=== PATIENT | female | born 1980 ===

== ENCOUNTER 2018-06-07 21:22 | Inpatient (IN) ==
[2018-06-07] MEDS ORDERED: PIPERACILLIN/TAZOBACTAM 3,375 MG in SODIUM CHLORIDE 0.9% 100 ML IV STA (23:29)
[2018-06-07] MEDS ORDERED: SODIUM CHLORIDE 0.9% 1,000 ML IV SCH (23:30)
[2018-06-07 23:42] LABS: Basophils % 0.3 % (0.0-0.8); Eosinophils # 0.3 10*3/uL (0.0-0.87); Eosinophils % 2.2 % (0.00-10.9); Hematocrit 34.1 VOL% (35.7-47.0); Hemoglobin 10.6 GM/DL (12.0-16.0); Immature Granulocytes % 0.5 %; Immature Granulocytes Absolute 0.07 #; Lymphocytes # 4.6 10*3/uL (1.4-4.0); Lymphocytes % 35.7 % (21.3-54.2); Mean Corpuscular HGB Conc 31.1 GM/DL (32-36); Mean Corpuscular Hemoglobin 27 PG (27-34); Mean Corpuscular Volume 86.3 FL (87-102); Mean Platelet Volume 8.7 FL (9.6-12.0); Monocytes # 0.8 10*3/uL (0.11-0.8); Monocytes % 6.2 % (1.7-12.7); Neutrophils # 7.2 10*3/uL (1.4-7.4); Neutrophils % 55.1 % (38.7-73.9); Platelet Count 327 T/CUMM (130-400); Red Blood Count 3.95 MC/CUMM (3.8-5.5); Red Cell Distribution Width 18.2 % (9.3-17.3)
[2018-06-08 00:54] LABS: Alanine Aminotransferase 12 U/L (13-56); Albumin 3.7 G/DL (3.4-5.0); Alkaline Phosphatase 77 U/L (45-117); Aspartate Amino Transferase 8 U/L (0-37); Bilirubin,Total < 0.39 MG/DL (0.2-1.0); Blood Urea Nitrogen 6 MG/DL (7-18); Calcium 8.5 MG/DL (8.5-10.1); Glucose 96 MG/DL (74-106); Osmolality,Calculated 272.7 MOS/KG (273-304); Potassium 3.5 MMOL/L (3.5-5.1); Sodium 138 MMOL/L (136-145); Total Protein 8.1 G/DL (6.4-8.3)
[2018-06-08 01:01] LABS: Apearance,Urine CLEAR (Clear); Bacteria,Urine Occasional /HPF (Few); Bilirubin,Urine Negative (Negative); Blood, Urine Negative (Negative); Glucose,Urine (UA) Negative (Negative); Ketones,Urine Negative (Negative); Mucus,Urine Occasional /LPF (Occasional); Nitrite,Urine Positive (Negative); Protein,Urine Negative; RBC,Urine 1 /HPF (0-4); Squamous Epithelial Cell,Urine Occasional /HPF (0-10); Urine Color Yellow (Yellow); Urine Specific Gravity 1.008 (1.001-1.035); Urine Urobilinogen < 2.0 EU/DL (0.2-1.0); WBC,Urine 1 /HPF (0-6)
[2018-06-08] MEDS ORDERED: ACETAMINOPHEN 325 MG TABLET PO PRN (01:41)
[2018-06-08] MEDS ORDERED: ONDANSETRON 4 MG/2 ML VIAL IV PRN (01:41)
[2018-06-08] MEDS ORDERED: SODIUM CHLORIDE 0.9% 1,000 ML IV SCH (01:41)
[2018-06-08] MEDS: ACETAMINOPHEN 325 MG TABLET PO PRN ×2 (02:11→06:45)
[2018-06-08 05:39] LABS: Basophils % 0.3 % (0.0-0.8); Eosinophils # 0.3 10*3/uL (0.0-0.87); Eosinophils % 2.3 % (0.00-10.9); Hematocrit 30.4 VOL% (35.7-47.0); Hemoglobin 9.5 GM/DL (12.0-16.0); Immature Granulocytes % 0.5 %; Immature Granulocytes Absolute 0.06 #; Lymphocytes # 4.1 10*3/uL (1.4-4.0); Lymphocytes % 33.8 % (21.3-54.2); Mean Corpuscular HGB Conc 31.3 GM/DL (32-36); Mean Corpuscular Hemoglobin 27 PG (27-34); Mean Corpuscular Volume 85.2 FL (87-102); Mean Platelet Volume 9.2 FL (9.6-12.0); Monocytes # 0.8 10*3/uL (0.11-0.8); Monocytes % 6.9 % (1.7-12.7); Neutrophils # 6.7 10*3/uL (1.4-7.4); Neutrophils % 56.2 % (38.7-73.9); Platelet Count 286 T/CUMM (130-400); Red Blood Count 3.57 MC/CUMM (3.8-5.5); Red Cell Distribution Width 18.1 % (9.3-17.3)
[2018-06-08 05:54] LABS: Alanine Aminotransferase 11 U/L (13-56); Albumin 2.9 G/DL (3.4-5.0); Alkaline Phosphatase 61 U/L (45-117); Aspartate Amino Transferase 8 U/L (0-37); Bilirubin,Total < 0.39 MG/DL (0.2-1.0); Blood Urea Nitrogen 6 MG/DL (7-18); Calcium 8.3 MG/DL (8.5-10.1); Glucose 106 MG/DL (74-106); Osmolality,Calculated 270.8 MOS/KG (273-304); Potassium 3.5 MMOL/L (3.5-5.1); Sodium 137 MMOL/L (136-145); Total Protein 6.6 G/DL (6.4-8.3)
[2018-06-08 07:21] VITALS: BP 105/53
[2018-06-08] MEDS ORDERED: PIPERACILLIN/TAZOBACTAM 3,375 MG in SODIUM CHLORIDE 0.9% 100 ML IV SCH (09:00)
[2018-06-08] MEDS ORDERED: FAMOTIDINE 20 MG TABLET PO SCH (09:00)
== END 2018-06-08 10:00 | disposition home or self-care (01) | DRG 93 ==
LOC: N.ED 21:22 → N.EDINP 23:29 → N.OB 06-08 01:05
PROVIDERS: ADMIT Obstetrics & Gynecology; ATTEND Obstetrics & Gynecology

== ENCOUNTER 2022-03-24 05:56 | Inpatient (IN) ==
[2022-03-24] MEDS ORDERED: VANCOMYCIN INJ 1,000 MG in SODIUM CHLORIDE 0.9% 250 ML IV ONE (06:00)
[2022-03-24] MEDS ORDERED: DIAZEPAM 5 MG TABLET PO ONE (06:58)
[2022-03-24] MEDS ORDERED: GABAPENTIN 400 MG CAPSULE PO ONE (06:58)
[2022-03-24] MEDS ORDERED: ACETAMINOPHEN 500 MG TABLET PO ONE (06:58)
[2022-03-24] MEDS ORDERED: LACTATED RINGERS 1,000 ML IV SCH (07:00)
[2022-03-24] MEDS ORDERED: LIDOCAINE 2% 5 ML VIAL ONE ×2 (09:23→09:26)
[2022-03-24] MEDS ORDERED: MIDAZOLAM 2 MG/2 ML VIAL ONE ×2 (09:23→09:48)
[2022-03-24] MEDS ORDERED: ONDANSETRON 4 MG/2 ML VIAL ONE (09:23)
[2022-03-24] MEDS ORDERED: propofoL 200 MG/20 ML VIAL IV ONE ×2 (09:23→10:56)
[2022-03-24] MEDS ORDERED: SUCCINYLCHOLINE 200 MG/10 ML VIAL ONE (09:23)
[2022-03-24] MEDS ORDERED: SEVOFLURANE 1 UNIT/15 MINUTE INH ONE (09:23)
[2022-03-24] MEDS ORDERED: fentaNYL 100 MCG/2 ML VIAL ONE ×4 (09:23→10:43)
[2022-03-24] MEDS ORDERED: ROCURONIUM 50 MG/5 ML VIAL IV ONE (09:23)
[2022-03-24] MEDS ORDERED: DEXAMETHASONE 4 MG/1 ML VIAL ONE (09:26)
[2022-03-24] MEDS ORDERED: ROPIVACAINE 0.5% 30 ML VIAL ONE (09:26)
[2022-03-24] MEDS ORDERED: TRANEXAMIC ACID 1,000 MG/10 ML VIAL ONE (10:34)
[2022-03-24] MEDS ORDERED: LACTATED RINGERS 1,000 ML IV ONE (11:22)
[2022-03-24] MEDS ORDERED: HYDROmorphone 1 MG/1 ML SYRINGE ONE (11:37)
[2022-03-24] MEDS ORDERED: PROMETHAZINE 25 MG/1 ML VIAL IM PRN (11:43)
[2022-03-24] MEDS ORDERED: TEMAZEPAM 7.5 MG CAPSULE PO PRN (11:43)
[2022-03-24] MEDS ORDERED: diphenhydrAMINE CAP 25 MG CAPSULE PO PRN (11:43)
[2022-03-24] MEDS ORDERED: LACTULOSE 20 GM/30 ML UDCUP PO PRN (11:43)
[2022-03-24] MEDS ORDERED: MAGNESIUM HYDROXIDE SUSP 30 ML UDCUP PO PRN (11:43)
[2022-03-24] MEDS ORDERED: BISACODYL 10 MG SUPP RECTAL PRN (11:43)
[2022-03-24] MEDS ORDERED: ONDANSETRON 4 MG/2 ML VIAL IV PRN ×2 (11:43→12:19)
[2022-03-24] MEDS ORDERED: ALBUTEROL 2.5 MG/3 ML NEB RESP TX PRN (11:46)
[2022-03-24] MEDS ORDERED: ONDANSETRON 4 MG TABLET PO PRN (11:46)
[2022-03-24] MEDS ORDERED: MORPHINE 2 MG/1 ML SYRINGE IV PRN (11:51)
[2022-03-24] MEDS ORDERED: MEPERIDINE 25 MG/1 ML VIAL ONE ×2 (12:19→12:27)
[2022-03-24] MEDS: MEPERIDINE 25 MG/1 ML VIAL IV PRN ×2 (12:20→12:30)
[2022-03-24] MEDS: HYDROmorphone 1 MG/1 ML SYRINGE IV PRN ×2 (12:38→12:43)
[2022-03-24] MEDS: PREGABALIN 100 MG CAPSULE PO SCH ×2 (15:50→20:17)
[2022-03-24] MEDS: carisoprodoL 350 MG TABLET PO SCH ×2 (15:50→22:46)
[2022-03-24] MEDS: ceFAZolin 2,000 MG/50 ML DUPLEX IV SCH (15:54)
[2022-03-24] MEDS ORDERED: HALOPERIDOL 5 MG/ML AMP IM ONE (17:13)
[2022-03-24] MEDS ORDERED: NICOTINE 14 MG/24 HR PATCH TRANSDERM PRN (17:28)
[2022-03-24] MEDS: MORPHINE 2 MG/1 ML SYRINGE IV PRN ×2 (17:30→20:20)
[2022-03-24] MEDS: DOCUSATE SODIUM 100 MG CAPSULE PO SCH (20:17)
[2022-03-25] MEDS: ceFAZolin 2,000 MG/50 ML DUPLEX IV SCH (01:34)
[2022-03-25] MEDS: MORPHINE 2 MG/1 ML SYRINGE IV PRN ×4 (01:45→14:03)
[2022-03-25] MEDS: ENOXAPARIN 30 MG/0.3 ML SYRINGE SUBCUT SCH (05:17)
[2022-03-25 05:30] LABS: Basophils % 0.2 % (0.0-0.8); Eosinophils % 0.1 % (0.00-10.9); Hematocrit 33.2 VOL% (35.7-47.0); Hemoglobin 10.5 GM/DL (12.0-16.0); Immature Granulocytes % 0.8 %; Immature Granulocytes Absolute 0.14 #; Lymphocytes # 4.4 10*3/uL (1.4-4.0); Lymphocytes % 23.7 % (21.3-54.2); Mean Corpuscular HGB Conc 31.6 GM/DL (32-36); Mean Corpuscular Volume 89.7 FL (87-102); Mean Platelet Volume 9.1 FL (9.6-12.0); Monocytes # 1.2 10*3/uL (0.11-0.8); Monocytes % 6.4 % (1.7-12.7); Neutrophils % 68.8 % (38.7-73.9); Platelet Count 293 T/CUMM (130-400); Red Cell Distribution Width 14.1 % (9.3-17.3); White Blood Count 18.4 T/CUMM (4-12)
[2022-03-25 05:50] LABS: Calcium 8.1 MG/DL (8.5-10.1); Osmolality,Calculated 275.5 MOS/KG (273-304)
[2022-03-25] MEDS: DOCUSATE SODIUM 100 MG CAPSULE PO SCH ×2 (08:25→20:26)
[2022-03-25] MEDS: PREGABALIN 100 MG CAPSULE PO SCH ×3 (08:25→20:26)
[2022-03-25] MEDS: carisoprodoL 350 MG TABLET PO SCH ×3 (08:25→20:26)
[2022-03-25] MEDS ORDERED: ACETAMINOPHEN 325 MG TABLET PO PRN (11:44)
[2022-03-25] MEDS ORDERED: oxyCODONE/ACETAMINOPHEN 5-325 MG TABLET PO PRN ×2 (15:57)
[2022-03-25] MEDS: KETOROLAC 15 MG/1 ML VIAL IV SCH ×2 (16:16→22:04)
[2022-03-25] MEDS: HYDROmorphone 1 MG/1 ML SYRINGE IV PRN (20:27)
[2022-03-26] MEDS: HYDROmorphone 1 MG/1 ML SYRINGE IV PRN ×7 (01:02→21:52)
[2022-03-26] MEDS: KETOROLAC 15 MG/1 ML VIAL IV SCH ×4 (03:47→21:10)
[2022-03-26] MEDS: ENOXAPARIN 30 MG/0.3 ML SYRINGE SUBCUT SCH (05:24)
[2022-03-26 05:43] LABS: Basophils % 0.3 % (0.0-0.8); Eosinophils # 0.1 10*3/uL (0.0-0.87); Immature Granulocytes % 0.5 %; Immature Granulocytes Absolute 0.06 #; Lymphocytes # 5.4 10*3/uL (1.4-4.0); Lymphocytes % 42.4 % (21.3-54.2); Mean Corpuscular HGB Conc 32.3 GM/DL (32-36); Mean Corpuscular Volume 89.9 FL (87-102); Mean Platelet Volume 9.2 FL (9.6-12.0); Monocytes # 0.9 10*3/uL (0.11-0.8); Monocytes % 7.2 % (1.7-12.7); Neutrophils % 48.6 % (38.7-73.9); Platelet Count 265 T/CUMM (130-400); Red Blood Count 3.45 MC/CUMM (3.8-5.5); Red Cell Distribution Width 14.6 % (9.3-17.3); White Blood Count 12.6 T/CUMM (4-12)
[2022-03-26 05:55] LABS: Calcium 7.8 MG/DL (8.5-10.1); Osmolality,Calculated 279.3 MOS/KG (273-304); Potassium 3.7 MMOL/L (3.5-5.1)
[2022-03-26] MEDS: DOCUSATE SODIUM 100 MG CAPSULE PO SCH ×2 (08:02→20:09)
[2022-03-26] MEDS: carisoprodoL 350 MG TABLET PO SCH ×4 (08:02→20:09)
[2022-03-26] MEDS: PREGABALIN 100 MG CAPSULE PO SCH ×4 (08:02→20:09)
[2022-03-26] MEDS ORDERED: LORazepam 0.5 MG TABLET PO PRN (13:34)
[2022-03-26] MEDS: LORazepam 2 MG/1 ML VIAL IV PRN ×2 (13:56→21:52)
[2022-03-26] MEDS: oxyCODONE/ACETAMINOPHEN 5-325 MG TABLET PO SCH ×2 (18:00→23:08)
[2022-03-26] MEDS ORDERED: ZALEPLON 5 MG CAPSULE PO SCH (21:00)
[2022-03-27] MEDS: HYDROmorphone 1 MG/1 ML SYRINGE IV PRN ×3 (00:54→07:57)
[2022-03-27] MEDS: KETOROLAC 15 MG/1 ML VIAL IV SCH ×2 (03:42→09:36)
[2022-03-27] MEDS: ENOXAPARIN 30 MG/0.3 ML SYRINGE SUBCUT SCH (05:30)
[2022-03-27 05:31] LABS: Basophils % 0.2 % (0.0-0.8); Eosinophils # 0.3 10*3/uL (0.0-0.87); Eosinophils % 2.9 % (0.00-10.9); Hematocrit 28.4 VOL% (35.7-47.0); Hemoglobin 9.2 GM/DL (12.0-16.0); Immature Granulocytes % 0.5 %; Immature Granulocytes Absolute 0.05 #; Lymphocytes # 4.4 10*3/uL (1.4-4.0); Lymphocytes % 40.8 % (21.3-54.2); Mean Corpuscular HGB Conc 32.4 GM/DL (32-36); Mean Corpuscular Volume 89.9 FL (87-102); Mean Platelet Volume 9.3 FL (9.6-12.0); Monocytes # 0.8 10*3/uL (0.11-0.8); Monocytes % 7.3 % (1.7-12.7); Neutrophils % 48.3 % (38.7-73.9); Platelet Count 272 T/CUMM (130-400); Red Blood Count 3.16 MC/CUMM (3.8-5.5); Red Cell Distribution Width 14.5 % (9.3-17.3); White Blood Count 10.9 T/CUMM (4-12)
[2022-03-27] MEDS: oxyCODONE/ACETAMINOPHEN 5-325 MG TABLET PO SCH (05:31)
[2022-03-27 08:05] VITALS: BP 125/69
[2022-03-27] MEDS ORDERED: HYDROmorphone 1 MG/1 ML SYRINGE IV PRN (08:10)
[2022-03-27] MEDS: DOCUSATE SODIUM 100 MG CAPSULE PO SCH (09:36)
[2022-03-27] MEDS: carisoprodoL 350 MG TABLET PO SCH (09:36)
[2022-03-27] MEDS: PREGABALIN 100 MG CAPSULE PO SCH (09:36)
== END 2022-03-27 10:21 | disposition home health service (06) | DRG 470 ==
LOC: N.OR 05:56 → N.SDSINP 05:56 → N.3E 13:26
PROVIDERS: ADMIT Orthopaedic Surgery; ATTEND Orthopaedic Surgery